=== PATIENT | female | born 1970 | race Caucasian/White ===

== ENCOUNTER 2025-04-29 07:53 | Outpatient (AMB) | payer OTHER, SELFPAY ==
--- OUTSIDE RECORDS SUMMARY | 2025-04-29 07:56 | XMS_ITS | Encounter Summary ---
Author Organization [employer] Address [address] [place] [address] Care Team Providers Care Caul Fat Puller Name Role Phone Unavailable Primary Care Provider Unavailabl e Encounter Details Date Type Department Care Team (Latest Contact Info) Description 11/30/2021 Abstract [facility] Dental, Provider, DDS Social History Tobacco Use Types Packs/Day Years Used Date Smoking Tobacco: Never Assessed Comments Unknown Sex and Gender Information Value Date Recorded Sex Assigned at Female 06/05/2022 2:54 PM EST Legal Sex Female 5:36 PM EDT Gender Identity Female 06/05/2022 2:54 PM EST Sexual Orientation Straight 01/28/2023 10 :22 AM EDT documented as of this encounter Plan of Treatment Upcoming Encounters Date Type Department Care Team (Late st Contact Info) Description 06/23/2025 10:10 AM EST Office Visit [place] [facility] [address] [place] [address] Chary Almonte documented as of this encounter Visit Diagnoses Not on filedocumented in this encounter
--- OUTSIDE RECORDS SUMMARY | 2025-04-29 07:56 | XMS_ITS | Clinical Summary ---
Author Organization [address] Address [address] [place] [phone] Phone Care Team Providers Care Gym Supervisor Name Role Phone Michelle Neves MD Primary Care Provider + [phone] Surgical History Surgery Date Site/Laterality Comments CARPAL TUNNEL RELEASE 02/07/2021 Right PROCEDURE: NM NEUROPLASTY &/TRANSPOS MEDIAN NRV CARPAL TUNNE; COMMENT: Right endoscopic carpal tunnel release with Dr. Hurd Social History Tobacco Use Types Packs/Day Years Used Date Smoking Tobacco: Never Smokeless Tobacco: Never Alcohol Use Standard Drinks/Week Comments Yes 0 (1 standard drink = 0.6 oz pur e alcohol) Comments No Sex and Gender Information Value Date Recorded Sex Assigned at Female 05/04/2024 11:51 AM EST Legal Sex Female 10:40 AM EST Gender Identity Female 05/04/2024 11:51 AM EST Sexual Orientation Straight 05/04/2024 11 :51 AM EST Obstetrics History Para Term AB IAB SAB Ectopic Multiple Livin g Live Births 2 Last Filed Vital Signs Vital Sign Reading Time Taken Comments Blood Pressure - - Pulse - - Temperature - - Respiratory Rate - - Oxygen Saturation - - Inhaled Oxygen Concentration - - Weight 90.7 kg (200 lb) 09/09/2024 8:49 AM EDT Height 162.6 cm (5' 4 ) 09/09/2024 8:49 AM EDT Body Mass Index 34.33 09/09/2024 8:49 AM EDT Plan of Treatment Health Maintenance Due Date Last Done Comments Colorectal Cancer Screening: Colonoscopy 1969 DTaP,Tdap,and Td Vaccines (1 - Tdap) 1988 Hepatitis B Vaccines (1 of 3 - 19+ 3-dose series) 1988 Pneumococcal Vaccine: 50+ Years (1 of 1 - PCV) 2019 Zoster Vaccines (1 of 2) 2019 HIV Screening 05/13/2022 Hepatitis C Screening 05/13/2022 Social Influencers of Health Screening 05/13/2022 Depression Screening 06/09/2024 COVID-19 Vaccine (3 - season) 2025 06/18/2021, 09/16/2020 Influenza Vaccine (#1) 2025 Breast Cancer Screening 09/09/2026 09/10/19, 09/08/2023, 09/05/2022, Additional history exists Cervical Cancer Screening: Pap Smear 04/27/2027 04/27/2024 RSV Immunization Adult Patients (1 - 1-dose 75+ series) 2044 HIB Vaccines Aged Out No longer eligi ble based on patient's age to complete this topic HPV Vaccines Aged Out No longer eligi ble based on patient's age to complete this topic Hepatitis A Vaccines Aged Out No long er eligible based on patient's age to complete this topic IPV Vaccines Aged Out No longer eligi ble based on patient's age to complete this topic MMR Vaccines Aged Out No longer eligi ble based on patient's age to complete this topic Meningococcal ACWY Vaccine Aged Out N o longer eligible based on patient's age to complete this topic Meningococcal B Vaccine Aged Out No l onger eligible based on patient's age to complete this topic RSV Immunization Patients Under 20 months Aged Out No longer eligible based on patient's age to complete this topic Varicella Vaccines Aged Out No longer eligible based on patient's age to complete this topic Procedures Procedure Name Priority Date/Time Associated Diagnosis Comments MG MAMMO DIGITAL SCREENING W MORIS BILAT Routine 09/09/2024 8:50 AM EDT Encounter for screening mammogram for malignant neoplasm of breast PAP SMEAR Routine 04/27/2024 12:00 AM EST Encounter for gynecological examination (general) (routine) without abnormal findings from Last 3 Months or Most Recently Relevant to Health Maintenance Results * MG Mammo Digital Screening w Moris bilat (09/09/2024 8:50 AM EDT) Anatomical Region Laterality Modality Breast Bilateral Mammography 09/09/2024 12:2 0 PM EDT Impressions 09/09/2024 12:28 PM EDT No evidence of breast malignancy. BI-RADS CATEGORY: 1 - NEGATIVE RECOMMENDATION: Screening bilateral mammogram is recommended in 1 year. Mammo Location: [facility], [address] [place] [address], [id number], . -------- FINAL REPORT -------- Dictated By: Debi Chavarria Dictated Date: 09/09/2024 12:20 ET Assigned Physician: Debi Chavarria Reviewed and Electronically Signed By: Debi Chavarria Signed Date: 09/09/2024 12:28 ET Workstation ID: [id number] Transcribed By: Self Edit Transcribed Date: 09/09/2024 12:20 ET Narrative 09/09/2024 12:28 PM EDT CLINICAL: 54 years old, Female, routine annual exam. COMPARISON: 09/08/2023, 09/05/2022, 09/03/2021, 09/02/2020 and 07/05/2019 TECHNIQUE: Bilateral MLO and CC views were obtained digitally with 3-D mammogram (digital breast tomosynthesis). Computer-aided detection was utilized in evaluation of this exam (CAD). FINDINGS: There is no evidence of suspicious mass or architectural distortion. No worrisome calcifications are evident. There has been no significant change from prior exam(s). Stable oval mass in the right retroareolar region. BREAST DENSITY: A - The breasts are almost entirely fatty. Procedure Note Debi Chavarria MD - 09/09/2024 CLINICAL: 54 years old, Female, routine annual exam. COMPARISON: 09/08/2023, 09/05/2022, 09/03/2021, 09/02/2020 and 07/05/2019 TECHNIQUE: Bilateral MLO and CC views were obtained digitally with 3-Dmammogram (digital breast tomosynthesis). Computer-aided detection wasutilized in evaluation of this exam (CAD). FINDINGS: There is no evidence of suspicious mass or architectural distortion. Noworrisome calcifications are evident. There has been no significantchange from prior exam(s). Stable oval mass in the right retroareolarregion. BREAST DENSITY: A - The breasts are almost entirely fatty. IMPRESSION: No evidence of breast malignancy. BI-RADS CATEGORY: 1 - NEGATIVE RECOMMENDATION: Screening bilateral mammogram is recommended in 1 year. Mammo Location: [facility], [address] [place] [address], [id number], . -------- FINAL REPORT -------- Dictated By: Debi Chavarria Dictated Date: 09/09/2024 12:20 ET Assigned Physician: Debi Chavarria Reviewed and Electronically Signed By: Debi Chavarria Signed Date: 09/09/2024 12:28 ET Workstation ID: [id number] Transcribed By: Self Edit Transcribed Date: 09/09/2024 12:20 ET David Hilliard MD IMG BI PROCEDURES Final Result * Pap smear (04/27/2024 12:00 AM EST) Interpretation Negative for intraepithelial lesion or malignancy 05/05/2024 8:53 AM EST [facility] General Categorization Negative 05/05/2024 8:53 AM EST [facility] Other Findings Reparative changes 05/05/2024 8:53 AM EST [facility] Additional Information Acute inflammation and blood is present. 05/05/2024 8:53 AM [facility] Specimen Adequacy Satisfactory for evaluation, endocervical/lundberg sformation zone component present 05/05/2024 8:53 AM [facility] Comment: Pap Methodology Liquid Based Pap Test 05/05/2024 8:53 AM [facility] Disclaimer The Pap test is a screening test which carries an inherent false negative rate. These test results should be correlated with the patient's clinical findings and history. This Pap test was processed using an automated screening system. Technical cytopathology services provided by [facility], at [address] [place] [address] (IA # [id number]/Sam Sterling MD, Climatologist.) 05/05/2024 8:53 AM EST [facility] Console Pap Interpretation Reported 05/05/2024 8:53 AM EST [facility] Brushing/Spatula Cervix uteri structure / Unknown 04/27/2024 04/28/2024 9:49 AM EST us David Hilliard MD LAB CYTOLOGY ORDERABLES Final Result [facility] [address] [place] [address], from Last 3 Months or Most Recently Relevant to Health Maintenance Insurance Care Teams Gym Supervisor Relationship Specialty Start Date End Date Michelle Neves MD [address] [place] [phone] PCP - General Internal Medicine 09/09/24
--- OUTSIDE RECORDS SUMMARY | 2025-04-29 07:56 | XMS_ITS | Encounter Summary ---
Author Organization [employer] Address [address] [place] [address] [address] [address] Care Team Providers Care Threading Machine Feeder Automatic Name Role Phone Unavailable Primary Care Provider Unavailabl e Encounter Details Date Type Department Care Team (Latest Contact Info) Description 03/02/2019 Abstract [facility] Dental, Provider, DDS Social [...] Description 06/23/2025 10:10 AM EST Office Visit [place] [facility] [address] [place] [address] Chary Almonte documented as of this encounter Visit Diagnoses Not on filedocumented in this encounter
--- OUTSIDE RECORDS SUMMARY | 2025-04-29 07:56 | XMS_ITS | Clinical Summary ---
Author Organization [employer] Address [address] [place] [address] [address] [place] [address] Care Team Providers Care Safety Investigator/Cause Analyst Name Role Phone Unavailable Primary Care Provider Unavailabl e Allergies No known active allergies Medications metFORMIN (Glucophage) 500 MG tablet TAKE 1 TABLET BY MOUTH DAILY AFTER BREAKFAST 4 Active naproxen (Naprosyn) 500 MG tablet Take 500 mg by mouth 2 times daily. Active Zepbound 2.5 MG/0.5ML solution auto-injector INJECT 1 PEN SUBCUTANEOUSLY ONCE A WEEK Active Social History Tobacco Use Types Packs/Day Years Used Date Smoking Tobacco: Former Cigarettes 0.5 21 1 - 2019 Smokeless Tobacco: Never Tobacco Cessation:Counseling Given: Not Answered Alcohol Use Standard Drinks/Week Comments Not Currently 0 (1 standard drink = 0.6 oz pur e alcohol) Comments Unknown Sex and Gender Information Value Date Recorded Sex Assigned at Female 06/05/2022 2:54 PM EST Legal Sex Female 5:36 PM EDT Gender Identity Female 06/05/2022 2:54 PM EST Sexual Orientation Straight 01/28/2023 10 :22 AM EDT Plan of Treatment Upcoming Encounters Date Type Department Care Team (Late st Contact Info) Description 06/23/2025 10:10 AM EST Office Visit [place] [facility] [address] [place] [address] Chary Almonte Health Maintenance Due Date Last Done Comments CT Colonography 1969 Colonoscopy 1969 Colorectal Cancer Screening 1969 Depression Screening 1969 FIT DNA/Cologuard 1969 FIT 1969 FOBT 1969 HIV Screening 1969 SDOH Screening 1969 Sigmoidoscopy 1969 Disability Screening 1969 Alcohol/Substance Use Screening 1981 Hepatitis C Screening 1987 DTaP/Tdap/Td Vaccines (1 - Tdap) 1988 Hepatitis B Vaccines (1 of 3 - 19+ 3-dose series) 1988 Pap Smear 1990 Cervical Cancer Screening 1999 HPV/Cotest 1999 Pneumococcal Vaccine: 50+ Years (1 of 1 - PCV) 2019 Zoster Vaccines (1 of 2) 2019 Dental X-Ray: Bitewings 01/13/2025 01/13/20 24, 12/06/2022, 05/23/2021, Additional history exists COVID-19 Vaccine ( - 2024- season) 2025 06/18/2021, 09/16/2020 Influenza Vaccine (#1) 2025 Dental Oral Exam 05/01/2025 10/28/2024, 11/2023, 12/06/2022, Additional history exists Dental Prophylaxis 05/01/2025 10/28/2024, 0 01/13/2024, 12/06/2022, Additional history exists Tobacco Screening 10/28/2025 10/28/2024 Dental X-Ray: Full Mouth 12/07/2025 023, 03/02/2019, 05/10/2014 Mammogram 09/09/2026 09/09/2024, 09/09/2024 RSV Patients and Patients Aged 60 years or older (1 - 1-dose 75+ series) 2044 HIB [...] patient's age to complete this topic Meningococcal Vaccine Aged Out No simon kash eligible based on patient's age to complete this topic RSV under 20 months Aged Out No longe r eligible based on patient's age to complete this topic Rotavirus Vaccines Aged Out No longer eligible based on patient's age to complete this topic Procedures Procedure Name Priority Date/Time Associated Diagnosis Comments Full PROPHYLAXIS - ADULT Routine 025 9:30 AM EDT PERIODIC ORAL EVALUATION - ESTABLISHED PATIENT Routine 10/28/2024 9:30 AM EDT BITEWINGS - 4 RADIOGRAPHIC IMAGES Routine 01/13/2024 2:00 PM EDT INTRAORAL - COMPLETE SERIES OF RADIOGRAPHIC IMAGES Routine 12/06/2022 8:30 AM EDT from Last 3 Months or Most Recently Relevant to Health Maintenance Insurance [facility] PARTIAL (MEDICAID) [facility]
--- OUTSIDE RECORDS SUMMARY | 2025-04-29 07:56 | XMS_ITS | Encounter Summary ---
Author Organization [facility] Address [address] [place] [address] Care Team Providers Care Jewelry Sales Representative Name Role Phone Michelle Neves MD Primary Care Provider + [phone] Encounter Details Date Type Department Care Team (Latest Contact Info) Description 04/28/2024 Lab Requisition [facility] [address] [place] [phone] David Hilliard MD [address] [phone] Encounter for gynecological examination (general) (routine) without abnormal findings Social History Tobacco Use Types Packs/Day Years [...] Orientation Straight 05/04/2024 11 :51 AM EST documented as of this encounter Plan of Treatment Not on file documented as of this encounter Procedures Procedure Name Priority Date/Time Associated Diagnosis Comments PAP SMEAR Routine 04/27/2024 12:00 AM EST Encounter for gynecological examination (general) (routine) without abnormal findings documented in this encounter Results * Pap smear (04/27/2024 12:00 AM EST) Interpretation Negative for intraepithelial lesion or malignancy 05/05/2024 8:53 AM [facility] General Categorization Negative 05/05/2024 8:53 AM [facility] Other Findings Reparative changes 05/05/2024 8:53 AM [facility] Additional Information Acute inflammation and blood is present. 05/05/2024 8:53 AM [facility] Specimen Adequacy Satisfactory for evaluation, endocervical/lundberg sformation zone component present 05/05/2024 8:53 AM [facility] Comment: Pap Methodology Liquid Based Pap Test 05/05/2024 8:53 AM [facility] Disclaimer The Pap test is a screening test which carries an inherent false negative rate. These test results should be correlated with the patient's clinical findings and history. This Pap test was processed using an automated screening system. Technical cytopathology services provided by [facility], at [address] [place] [address] (CLIA # [id number]/Sam Sterling MD, Consultant [employer]. Vice President [employer] ).) 05/05/2024 8:53 AM [facility] Console Pap Interpretation Reported 05/05/2024 8:53 AM [facility] Brushing/Spatula Cervix uteri structure / Unknown 04/27/2024 04/28/2024 9:49 AM EST us David Hilliard MD LAB CYTOLOGY ORDERABLES Final Result [facility] [address] [place] [address], documented in this encounter Visit Diagnoses Diagnosis Encounter for gynecological examination (general) (routine) without abnormal findings documented in this encounter Care Teams Jewelry Sales Representative Relationship Specialty Start Date End Date Michelle Neves MD [address] [place] [phone] PCP - General Internal Medicine 09/09/24 documented as of this encounter
--- OUTSIDE RECORDS SUMMARY | 2025-04-29 07:56 | XMS_ITS | Encounter Summary ---
Author Organization [employer] Address [address] [place] [address] [address] [address] Care Team Providers Care Print Binding Worker Name Role Phone Unavailable Primary Care Provider Unavailabl e Encounter Details Date Type Department Care Team (Latest Contact Info) Description 01/11/2020 Abstract [facility] Dental, Provider, DDS Social [...] Description 06/23/2025 10:10 AM EST Office Visit [place] [facility] [address] [place] [address] Chary Almonte documented as of this encounter Visit Diagnoses Not on filedocumented in this encounter
--- OUTSIDE RECORDS SUMMARY | 2025-04-29 07:56 | XMS_ITS | Encounter Summary ---
Author Organization [employer] Address [address] [place] [address] Care Team Providers Care Eyeglass Cutter Name Role Phone Unavailable Primary Care Provider Unavailabl e Encounter Details Date Type Department Care Team (Latest Contact Info) Description 05/23/2021 Abstract [facility] Dental, Provider, DDS Social [...] Description 06/23/2025 10:10 AM EST Office Visit [place] [facility] [address] [place] [address] Chary Almonte documented as of this encounter Visit Diagnoses Not on filedocumented in this encounter
--- OUTSIDE RECORDS SUMMARY | 2025-04-29 07:56 | XMS_ITS | Encounter Summary ---
Author Organization [employer] Address [address] [place] [address] [address] [address] Care Team Providers Care Manager Trainee Name Role Phone Unavailable Primary Care Provider Unavailabl e Encounter Details Date Type Department Care Team (Latest Contact Info) Description 08/05/2018 Abstract [facility] Dental, Provider, DDS Social [...] Description 06/23/2025 10:10 AM EST Office Visit [place] [facility] [address] [place] [address] Chary Almonte documented as of this encounter Visit Diagnoses Not on filedocumented in this encounter
--- NOTE | 2025-04-29 10:31 | A.OFFVIS_ITS ---
VS Expanded 04/29/25 10:47 Height 5 ft 4 in Weight 198 lb BMI 34.0 Body Fat % 43.2 Body Fat Mass 85.6 Fat Free Mass 112.4 Visceral Fat Rating 11 Body Water % 40.3 Body Water Mass 79.8 Basal Metabolic Rate/Score 1,563 Intake Visit Reasons: [employer] [facility] BMI 34.0 Allergies No Known Allergies Allergy (Verified 04/29/25 10:31) Medication List - Last Reconciled 04/29/25 by Mehrdad Gabriel MD [calcium PO] fexofenadine (Adia Hives) 180 mg PO DAILY sumatriptan succinate 25 mg PO Q2-4H PRN [vitamin e PO] HPI HPI [employer] [facility] BMI 34.0: Details: Start time: 10.25am, End time: 11.10am ?I spent 40 minutes speaking with the patient on the phone plus an additional 5 minutes reviewing and updating records for a total of 45 minutes HPI Comments Details: Previous weight loss efforts: DIPTI, Aydin/Melissa, meal tracking Wakes up: 5am, Sleeps: 8pm Breakfast: 10am (cereal, fruits, eggs with toast/turpin) Lunch: 12.30pm-1pm (soups, sandwich, salad) Dinner: 4-5pm (steak, chicken, pork) Snacks: one after dinner (ice cream, popcorn, tortilla chips) Exercise: has an Elliptical (unclear if tracks calories) Beverages: Coffee (20oz/d with Truvia and 1% milk), Tea (hot/iced): (1 cup/d with Truvia), Soda: none, Juice: none, ETOH: occasionally PFSH Medical History (Updated 04/29/25 @ 11:05 by Mehrdad Gabriel MD) Migraines BMI 34.0-34.9,adult Obesity Surgical History (Updated 02/22/25 @ 13:24 by Deborah Mon CMA) Hx of rotator cuff surgery History of carpal tunnel release of both wrists Hx of colonoscopy Family History (Updated 02/22/25 @ 11:14 by Deborah Mon CMA) Daughter Obesity Son No problems noted. Social History (Updated 02/22/25 @ 11:14 by Deborah Mon CMA) Alcohol intake: current Alcohol intake frequency: holidays/special occasions only Patient Tobacco Use Status: Never used Tobacco Telehealth Telehealth Telehealth Platform: Telephone Location of provider rendering services: practice address Location of patient: address on file Patient Identification confirmed using: Name, : Yes Telehealth method: voice only Patient verbally consented to treatment: Yes Patient verbally consented to billing insurance company: Yes Patient informed of any privacy concerns related to visit: Yes Minutes spent on Phone/Video with Pt.: 45 Assessment & Plan Assessment & Plan (1) Obesity: Code(s): E66.9 - Obesity, unspecified Category: Medical Qualifiers: Obesity type: due to excess calories Obesity classification: adult class 1 (BMI 30 - 34.9) Serious obesity comorbidity presence: without serious comorbidity Body mass index: BMI 34.0-34.9 Qualified Code(s): E66.811 - Obesity, class 1; E66.09 - Other obesity due to excess calories; Z68.34 - Body mass index [BMI] 34.0-34.9, adult Plan: 1. Nutritional counseling. Start with one CELEBRATE REBUILD protein (buy online with the link I gave you) shake (ONE scoop in 8oz low fat unsweetened almond milk) at 6am-8am, 1 protein bar (CELEBRATE protein bars, buy at hospital[facility], buy online with the link I gave you) ) at 9am-11am, another CELEBRATE REBUILD protein shake (ONE scoop in 8oz low fat unsweetened almond milk) at 12pm-2pm, another Celebrate protein bar at 3pm-5pm, dinner at 6pm (8 forks of protein and 8 forks of salad/vegetables). So you do 2 protein shakes, 2 protein bars and one meal per day. Meal to include lean meat (beef, fish, pork, turkey, chicken), or croatian yogurt, or egg whites, or beans with a salad with olive oil and fruits (berries, pears, apples, kiwi). Avoid salt, breads, potatoes, rice, pasta, desserts. 2. Each shake would be drunk slowly, like coffee in a period of 2 hours. 3. Cut each bar in 4 pieces and eat each piece in 30min ?to make each bar last 2 hours. 4. I emphasized the importance of measuring accurately the food portion and measure it when serving the food in plate 5. The meal portions include 8 full-size forks of meat and 8 full-size forks of salad. You always eat the meat portion but you can replace up to 4 forks for salad/vegetables with rice, potatoes or pasta, or a fruit ?if you like. The less you do it the better weight loss will be. 6. One full-size fork is what it can be scooped on the fork without falling aside and not what can be bit with the fork. Use regular forks like those you find in a typical restaurant. 7.? Please buy the body composition scale we discussed and send me weight measurements as soon as possible and then once a week. Always include your diet and exercise plan. 8. Start Elliptical with an incline of 2.0 and resistance of 4.0. Increase resistance by 1 every 3 min to a max resistance of 10.0, and repeat cycles for 300 calories. Goal is to burn 2000 calories per week on exercise, which means either 300 calories daily. 9. Goal is to lose at least 1.5-2lbs per week 10. Goal to lose at least 10% of your weight, which is about 20lbs. Minimum weight goal: 180lbs 11. Please follow the diet plan exactly without any change. If you don't like something about the plan or you feel hungry you need to communicate with me so I can help you revise the plan. You should not change the plan yourself Orders: Orders TSH reflex Free T4 Today E66.9 - Obesity, unspecified, Z68.34 - Body mass index [BMI] 34.0-34.9, adult C Reactive Protein Today E66.9 - Obesity, unspecified, Z68.34 - Body mass index [BMI] 34.0-34.9, adult Vitamin B1 Today E66.9 - Obesity, unspecified, Z68.34 - Body mass index [BMI] 34.0-34.9, adult Zinc Today E66.9 - Obesity, unspecified, Z68.34 - Body mass index [BMI] 34.0- 34.9, adult Comprehensive Met. Panel Today E66.9 - Obesity, unspecified, Z68.34 - Body mass index [BMI] 34.0-34.9, adult Complete Blood Count Auto Diff Today E66.9 - Obesity, unspecified, Z68.34 - Body mass index [BMI] 34.0-34.9, adult Insulin Today E66.9 - Obesity, unspecified, Z68.34 - Body mass index [BMI] 34.0-34.9, adult Ferritin Today E66.9 - Obesity, unspecified, Z68.34 - Body mass index [BMI] 34.0-34.9, adult Vitamin B12 and Folate Today E66.9 - Obesity, unspecified, Z68.34 - Body mass index [BMI] 34.0-34.9, adult Lipid Panel Today E66.9 - Obesity, unspecified, Z68.34 - Body mass index [BMI] 34.0-34.9, adult Hemoglobin A1c Today E66.9 - Obesity, unspecified, Z68.34 - Body mass index [BMI] 34.0-34.9, adult Vitamin D 25-OH Total Today E66.9 - Obesity, unspecified, Z68.34 - Body mass index [BMI] 34.0-34.9, adult Vitamin A Today E66.9 - Obesity, unspecified, Z68.34 - Body mass index [BMI] 34.0-34.9, adult IRON PROFILE Today E66.9 - Obesity, unspecified, Z68.34 - Body mass index [BMI] 34.0-34.9, adult
[2025-04-29 10:47] VITALS: BMI 34.0
== END 2025-04-29 11:11 | disposition home or self-care (01) ==
LOC: HO.HBS 07:53
PROVIDERS: PCP Internal Medicine; Visit Provider Surgery
DX: E66.811 Obesity, class 1 (principal); E66.09 Other obesity due to excess calories; Z68.34 Body mass index [BMI] 34.0-34.9, adult
CPT/HCPCS: 99204